=== PATIENT | male | born 1970 | race Caucasian/White ===

== ENCOUNTER 2017-05-18 14:55 | Inpatient (IN) | payer OTHER ==
[2017-05-18 16:41] VITALS: BMI 29.0
--- NOTE | 2017-05-18 18:48 | HP ---
COWS - Scale Resting Pulse: 0= [place] 80 or Below Sweatin=Flushed/Facial Moisture Restless Observation: 3= Extraneous Movement Pupil Size: 1= Pupils >than Normal Bone or Joint Aches: 2= Severe Diffuse Aches Runny Nose/ Eye Tearin= Runny Nose/Eyes GI Upset > 30mins: 2= Nausea/Diarrhea Tremor Observation: 1= Tremor [place], Not Seen Yawning Observation: 1= 1-2x During Session Anxiety or Irritability: 2=Irritable/Anxious Goose Flesh Skin: 0=Smooth Skin COWS Score: 16 Admission ROS S - HPI Chief Complaint: "I don't want this anymore, I have a and 3 children" Allergies/Adverse Reactions: Allergies Allergy/AdvReac Type Severity Reaction Status Date / Time cefaclor [From Ceclor] Allergy Severe Hives Verified 09/25/15 12:20 Penicillins Allergy Severe Swelling Verified 09/25/15 12:20 History of Present Illness: 46 y/o man with a 2 year history of heroin use, endorses occasional alcohol use but not addicted to it. Last use was this a.m. Pt had been at [facility] detox program in the past and attended rehab somewhere in [place]. Denies any significant medical hx but had surgical repair of the spine 2 years ago which he states was what started him on heroin. Exam Limitations: No Limitations - Ebola screening Have you traveled outside of the country in the last 21 days: No (N) Have you had contact with anyone from an Ebola affected area: No Have you been sick,other than usual withdrawal symptoms: No Do you have a fever: No - Review of Systems Constitutional: Chills, Diaphoresis, Night Sweats EENT: reports: Nose Congestion Respiratory: reports: No Symptoms reported Cardiac: reports: No Symptoms Reported GI: reports: Diarrhea, Nausea, Vomiting Musculoskeletal: reports: Back Pain (chronic back pain) Integumentary: reports: Flushing Neuro: reports: No Symptoms reported Endocrine: reports: No Symptoms Reported Hematology: reports: No Symptoms Reported, Anemia Psychiatric: reports: No Sypmtoms Reported Patient History - Patient Medical History Hx Anemia: No Hx Asthma: No Hx Chronic Obstructive Pulmonary Disease (COPD): No Hx Cancer: No Hx Cardiac Disorders: No Hx Congestive Heart Failure: No Hx Hypertension: No Hx Hypercholesterolemia: Yes (stayes he ran out his med a while agoand cannot rememeber the name of it, ) Hx Pacemaker: No HX Cerebrovascular Accident: No Hx Seizures: No Hx Dementia: No Hx Diabetes: No Hx Gastrointestinal Disorders: No Hx Liver Disease: No Hx Genitourinary Disorders: No Hx Sexually Transmitted Disorders: No Hx Renal Disease (ESRD): No Hx Thyroid Disease: No Hx Human Immunodeficiency Virus (HIV): No Hx Hepatitis C: No Hx Depression: Yes Hx Suicide Attempt: No Hx Bipolar Disorder: No Hx Schizophrenia: No - Patient Surgical History Past Surgical History: Yes Hx Orthopedic Surgery: Yes (back injury and had spinal fusion 04/2015) Anesthesia Reaction: No - PPD History Documented Results: Negative w/o proof Date: 09/27/15 PPD to be Administered?: Yes - Smoking Cessation Smoking history: Current every day smoker Have you smoked in the past 12 months: Yes Aproximately how many cigarettes per day: 20 Hx Chewing Tobacco Use: No Initiated information on smoking cessation: Yes 'Breaking Loose' booklet given: 05/18/17 - Substance & Tx. History Hx Substance Use: Yes Substance Use Type: Cocaine (occasional), Heroin (5 - 10 bags a day) - Substances Abused Cocaine Route: Inhalation Frequency: 1-3 times last 30 days Heroin Route: Inhalation Frequency: Daily Amount used: 5- 10 bags Age of first use: 44 Date of Last Use: 05/18/17 Marijuana/Hashish Route: Smoking (ocassionally) Frequency: 1-3 times last 30 days Oxycontin Route: Oral Frequency: 1-3 times last 30 days Amount used: "i dont know" Family Disease History - Family Disease History Family Disease History: Heart Disease: Grandparent ([place],L[place]GS), [place]: Grandparent, Other: Father (none, alive), Mother (none, alive), Brother (none, alive), Sister (none, alive), Son Admission Physical Exam S - Vital Signs Vital Signs: Vital Signs - 24 hr 05/18/17 16:39 Temperature 97.9 F Pulse Rate 64 Respiratory 18 Rate Blood Pressure 130/81 - Physical General Appearance: Yes: Moderate Distress, Anxious HEENTM: Yes: Nasal Congestion Respiratory: Yes: Chest Non-Tender, Lungs Clear, Normal Breath Sounds, No Accessory Muscle Use Neck: Yes: No masses,lesions,Nodules Breast: Yes: Breast Exam Deferred Cardiology: Yes: Regular Rhythm, Regular Rate, S1, S2 Abdominal: Yes: Normal Bowel Sounds, Non Tender Genitourinary: Yes: Within Normal Limits Back: Yes: Surgical Scar (s/p spinal fusion 2016) Integumentary: Yes: Within Normal Limits, Normal Color Lymphatic: Yes: Within Normal Limits - Diagnostic (1) Opioid dependence with withdrawal Current Visit: No Status: Acute (2) Cannabis dependence, uncomplicated Current Visit: No Status: Acute (3) Nicotine dependence Current Visit: No Status: Chronic Qualifiers: Nicotine product type: cigarettes Substance use status: uncomplicated Qualified Code(s): F17.210 - Nicotine dependence, cigarettes, uncomplicated Cleared for Admission [facility] - Detox or Rehab [facility] Level of Care: Medically Managed Detox Regimen/Protocol: Methadone [facility] Breath Alcohol Content Breath Alcohol Content: 0 Urine Drug Screen - Results Drug Screen Negative: No Urine Drug Screen Results: THC-Marijuana, CALOS-Cocaine, OPI-Opiates, OXY- Oxycodone
[2017-05-18] MEDS ORDERED: METHADONE HCL 10 MG TABLET (FOR DETOX USE ONLY) PO ONE (19:02)
[2017-05-18] MEDS ORDERED: guaiFENesin/D-METHORPHAN HB 10 ML UNIT-DOSE CUPS PO PRN (19:02)
[2017-05-18] MEDS ORDERED: NICOTINE POLACRILEX 2 MG GUM BC PRN (19:02)
[2017-05-18] MEDS ORDERED: MAG HYDROX/AL HYDROX/SIMETH 30 ML UNIT-DOSE CUP PO PRN (19:02)
[2017-05-18] MEDS ORDERED: MAGNESIUM HYDROX 2400MG/30ML ORAL SUSPENSION 30 ML CUP PO PRN (19:02)
[2017-05-18] MEDS ORDERED: IBUPROFEN 400 MG TABLET (FP) PO PRN (19:02)
[2017-05-18] MEDS ORDERED: LOPERAMIDE HCL 2 MG CAPSULE PO PRN (19:02)
[2017-05-18] MEDS ORDERED: MENTHOL/PHENOL 1 EACH UD MM PRN (19:02)
[2017-05-18] MEDS ORDERED: MAGNESIUM CITRATE 300 ML BOTTLE PO PRN (19:02)
[2017-05-18] MEDS ORDERED: ACETAMINOPHEN 325 MG TABLET (FP) PO PRN (19:02)
[2017-05-18] MEDS ORDERED: P-EPHED 60MG/TRIPROLIDI 2.5MG TABLET PO PRN (19:02)
[2017-05-18] MEDS: diazePAM 5 MG TABLET PO PRN (21:01)
[2017-05-18] MEDS: NICOTINE 21 MG/24 HOURS TOPICAL PATCH TD SCH (21:06)
[2017-05-19] MEDS: METHADONE HCL 10 MG TABLET (FOR DETOX USE ONLY) PO ONE ×2 (00:01→00:25)
[2017-05-19] MEDS: THIAMINE HCL 100 MG TABLET (FP) PO SCH ×3 (00:26→22:33)
[2017-05-19] MEDS: diazePAM 5 MG TABLET PO PRN ×3 (08:02→22:33)
--- NOTE | 2017-05-19 08:38 | EKG ---
Test Reason : Blood Pressure : / mmHG Vent. Rate : 066 BPM Atrial Rate : 066 BPM P-R Int : 148 ms QRS Dur : 084 ms QT Int : 418 ms P-R-T Axes : 070 069 041 degrees QTc Int : 438 ms NORMAL SINUS RHYTHM LOW VOLTAGE QRS BORDERLINE ECG WHEN COMPARED WITH ECG OF 11-MAR-2009 10:21, NO SIGNIFICANT CHANGE WAS FOUND Confirmed by PHILIPPE HERNÁNDEZ, MARCIE ([id number]) on 05/19/2017 8:38:35 AM Referred By: Juvenal Addison Confirmed By:MARCIE PAEZ MD
[2017-05-19] MEDS ORDERED: PRENATAL VITAMINS W/ FOLIC ACID TABLET (FP) PO SCH (10:00)
[2017-05-19] MEDS ORDERED: METHADONE HCL 10 MG TABLET (FOR DETOX USE ONLY) PO ONE (10:00)
[2017-05-19 10:09] LABS: HEMATOCRIT 41.4 % (35.4-49); HEMOGLOBIN 13.1 GM/dL (11.7-16.9); MCH 21.3 pg (25.7-33.7); MCHC 31.7 g/dl (32.0-35.9); MEAN CELL VOLUME 67.1 fl (80-96); MEAN PLT VOLUME 8.1 fl (7.5-11.1); PLATELET COUNT 244 K/MM3 (134-434); RBC 6.17 M/mm3 (4.00-5.60); RDW 15.9 % (11.9-15.9); WHITE BLOOD COUNT 7.4 K/mm3 (4.0-10.0)
--- NOTE | 2017-05-19 10:19 | CONSULT ---
[facility] Psychiatric Consult - Data Date of interview: 05/19/17 Admission source: Self-referred Identifying data: Mr Del Rio is a 46 years old male, father of 3 children, domiciled seeking detox treatment for opoid and cocaine Substance Abuse History: Reports history of heroin, percocet and cocaine use. Refer to addiction counselor's note for further information Medical History: Significant for hyperlipidemia and history of back injury ( spinal fusion in 2016). Ambulates with a cane. Smokes cigarettes 1ppd Psychiatric History: Denies history of previous psychiatric treatment Physical/Sexual Abuse/Trauma History: Denies history of emotional, physical or sexual abuse as well as DV relationship Additional Comment: Denies criminal history Mental Status Exam - Mental Status Exam Alert and Oriented to: Time, Place, Person Cognitive Function: Fair Patient Appearance: Well Groomed Mood: Depressed, Anxious Patient Behavior: Cooperative Speech Pattern: Clear Voice Loudness: Normal Thought Process: Intact, Goal Oriented Hallucinations: Denies Suicidal Ideation: Denies Homicidal Ideation: Denies Insight/Judgement: Poor Sleep: Poorly Appetite: Fair Muscle strength/Tone: Normal Gait/Station: Normal Psychiatric Findings - Problem List ([place] 1, 2,3) (1) Substance induced mood disorder Current Visit: Yes Status: Acute (2) Substance-induced sleep disorder Current Visit: No Status: Acute (3) Opioid dependence with withdrawal Current Visit: No Status: Acute (4) Cannabis dependence, uncomplicated Current Visit: No Status: Acute (5) Nicotine dependence Current Visit: No Status: Chronic Qualifiers: Nicotine product type: cigarettes Substance use status: uncomplicated Qualified Code(s): F17.210 - Nicotine dependence, cigarettes, uncomplicated (6) Hyperlipemia Current Visit: Yes Status: Chronic - Initial Treatment Plan Initial Treatment Plan: 1) Start Trazadone 100 mg po HS. 2) Continue inpatient detoxification
[2017-05-19 10:21] LABS: URINE APPEARANCE TURBID; URINE BILIRUBIN NEGATIVE (NEGATIVE); URINE BLOOD NEGATIVE (NEGATIVE); URINE GLUCOSE (UA) NEGATIVE (NEGATIVE); URINE KETONE NEGATIVE (NEGATIVE); URINE LEUK ESTERASE NEGATIVE (NEGATIVE); URINE NITRITE NEGATIVE (NEGATIVE); URINE PROTEIN NEGATIVE (NEGATIVE); URINE UROBILINOGEN NEGATIVE mg/dL (0.2-1.0)
[2017-05-19 10:24] LABS: URINE COLOR DK YELLOW
[2017-05-19 10:28] LABS: CHLORIDE 104 mmol/L (98-107); POTASSIUM 4.3 mmol/L (3.5-5.1); SODIUM 139 mmol/L (136-145)
[2017-05-19 10:39] LABS: ALBUMIN 3.9 g/dl (3.4-5.0); ALK PHOS 69 U/L (45-117); ANION GAP 5 (8-16); BILIRUBIN,TOTAL 0.9 mg/dL (0.2-1.0); BLOOD UREA NITROGEN 12 mg/dL (7-18); CALCIUM 8.8 mg/dL (8.5-10.1); CO2 30 mmol/L (21-32); GLUCOSE,RANDOM 113 mg/dL (74-106); SGOT/AST 15 U/L (15-37); SGPT/ALT 23 U/L (12-78)
[2017-05-19] MEDS: NICOTINE 21 MG/24 HOURS TOPICAL PATCH TD SCH (11:03)
--- NOTE | 2017-05-19 11:34 | PN ---
[facility] COWS - Scale Resting Pulse: 0= [place] 80 or Below Sweatin= Chills/Flushing Restless Observation: 1= Difficult to Sit Still Pupil Size: 0= Normal to Room Light Bone or Joint Aches: 2= Severe Diffuse Aches Runny Nose/ Eye Tearin= Runny Nose/Eyes GI Upset > 30mins: 2= Nausea/Diarrhea Tremor Observation of Outstretched Hands: 2= Slight Tremor Visible Yawning Observation: 2= >3x During Session Anxiety or Irritability: 2=Irritable/Anxious Goose Flesh Skin: 0=Smooth Skin COWS Score: 14 S Progress Note (SOAP) Subjective: joint aches back pain tremor sweat anxiety depression Objective: 05/19/17 11:33 Vital Signs Temperature 98.1 F 05/19/17 10:03 Pulse Rate 65 05/19/17 10:03 Respiratory Rate 18 05/19/17 10:03 Blood Pressure 133/82 05/19/17 10:03 O2 Sat by Pulse Oximetry (%) Laboratory Last Values WBC 7.4 K/mm3 (4.0-10.0) 05/19/17 08:15 RBC 6.17 M/mm3 (4.00-5.60) H 05/19/17 08:15 Hgb 13.1 GM/dL (11.7-16.9) D 05/19/17 08:15 Hct 41.4 % (35.4-49) 05/19/17 08:15 MCV 67.1 fl (80-96) L 05/19/17 08:15 MCH 21.3 pg (25.7-33.7) L 05/19/17 08:15 MCHC 31.7 g/dl (32.0-35.9) L 05/19/17 08:15 RDW 15.9 % (11.9-15.9) 05/19/17 08:15 Plt Count 244 K/MM3 (134-434) 05/19/17 08:15 MPV 8.1 fl (7.5-11.1) 05/19/17 08:15 Sodium 139 mmol/L (136-145) 05/19/17 08:00 Potassium 4.3 mmol/L (3.5-5.1) 05/19/17 08:00 Chloride 104 mmol/L (98-107) 05/19/17 08:00 Carbon Dioxide 30 mmol/L (21-32) 05/19/17 08:00 Anion Gap 5 (8-16) L 05/19/17 08:00 BUN 12 mg/dL (7-18) 05/19/17 08:00 Creatinine 1.0 mg/dL (0.7-1.3) 05/19/17 08:00 Creat Clearance w eGFR > 60 (>60) 05/19/17 08:00 Random Glucose 113 mg/dL (74-106) H 05/19/17 08:00 Calcium 8.8 mg/dL (8.5-10.1) 05/19/17 08:00 Total Bilirubin 0.9 mg/dL (0.2-1.0) D 05/19/17 08:00 AST 15 U/L (15-37) D 05/19/17 08:00 ALT 23 U/L (12-78) 05/19/17 08:00 Alkaline Phosphatase 69 U/L (45-117) 05/19/17 08:00 Total Protein 7.0 g/dl (6.4-8.2) 05/19/17 08:00 Albumin 3.9 g/dl (3.4-5.0) 05/19/17 08:00 Urine Color Dk yellow 05/18/17 09:57 Urine Appearance Turbid 05/18/17 09:57 Urine pH 5.0 (5.0-8.0) 05/18/17 09:57 Ur Specific [place] 1.025 (1.001-1.035) 05/18/17 09:57 Urine Protein Negative (NEGATIVE) 05/18/17 09:57 Urine Glucose (UA) Negative (NEGATIVE) 05/18/17 09:57 Urine Ketones Negative (NEGATIVE) 05/18/17 09:57 Urine Blood Negative (NEGATIVE) 05/18/17 09:57 Urine Nitrite Negative (NEGATIVE) 05/18/17 09:57 Urine Bilirubin Negative (NEGATIVE) 05/18/17 09:57 Urine Urobilinogen Negative mg/dL (0.2-1.0) 02 09:57 Ur Leukocyte Esterase Negative (NEGATIVE) 05/18/17 09:57 lab noted Assessment: 05/19/17 11:34 withdrawal sx Plan: continue detox
[2017-05-19] MEDS: hydrOXYzine PAMOATE 50 MG CAPSULE (FP) PO PRN (13:49)
[2017-05-19] MEDS: traZODone HCL 100 MG TABLET (FP) PO SCH (22:33)
[2017-05-20] MEDS: diazePAM 5 MG TABLET PO PRN ×3 (02:30→22:01)
[2017-05-20] MEDS ORDERED: METHADONE HCL 5 MG TABLET (FOR DETOX USE ONLY) PO ONE (10:00)
[2017-05-20] MEDS: cloNIDine HCL 0.1 MG TABLET PO SCH ×2 (10:45→22:01)
[2017-05-20] MEDS: CYCLOBENZAPRINE HCL 10 MG TABLET (FP) PO PRN ×2 (10:45→22:01)
[2017-05-20] MEDS: NICOTINE 21 MG/24 HOURS TOPICAL PATCH TD SCH (10:47)
--- NOTE | 2017-05-20 11:26 | PN ---
[facility] COWS - Scale Resting Pulse: 0= [place] 80 or Below Sweatin= Chills/Flushing Restless Observation: 3= Extraneous Movement Pupil Size: 1= Pupils >than Normal Bone or Joint Aches: 2= Severe Diffuse Aches Runny Nose/ Eye Tearin= Runny Nose/Eyes GI Upset > 30mins: 2= Nausea/Diarrhea Tremor Observation of Outstretched Hands: 2= Slight Tremor Visible Yawning Observation: 1= 1-2x During Session Anxiety or Irritability: 2=Irritable/Anxious Goose Flesh Skin: 0=Smooth Skin COWS Score: 16 S Progress Note (SOAP) Subjective: ALERT,IRRITABLE,ANXIOUS,INTERRUPTED SLEEP,PAIN IN THE BODY AND BACK Objective: 05/20/17 11:24 Vital Signs Temperature 98.1 F 05/20/17 10:39 Pulse Rate 78 05/20/17 10:39 Respiratory Rate 20 05/20/17 10:39 Blood Pressure 143/96 05/20/17 10:39 O2 Sat by Pulse Oximetry (%) Laboratory Last Values WBC 7.4 K/mm3 (4.0-10.0) 05/19/17 08:15 RBC 6.17 M/mm3 (4.00-5.60) H 05/19/17 08:15 Hgb 13.1 GM/dL (11.7-16.9) D 05/19/17 08:15 Hct 41.4 % (35.4-49) 05/19/17 08:15 MCV 67.1 fl (80-96) L 05/19/17 08:15 MCH 21.3 pg (25.7-33.7) L 05/19/17 08:15 MCHC 31.7 g/dl (32.0-35.9) L 05/19/17 08:15 RDW 15.9 % (11.9-15.9) 05/19/17 08:15 Plt Count 244 K/MM3 (134-434) 05/19/17 08:15 MPV 8.1 fl (7.5-11.1) 05/19/17 08:15 Sodium 139 mmol/L (136-145) 05/19/17 08:00 Potassium 4.3 mmol/L (3.5-5.1) 05/19/17 08:00 Chloride 104 mmol/L (98-107) 05/19/17 08:00 Carbon Dioxide 30 mmol/L (21-32) 05/19/17 08:00 Anion Gap 5 (8-16) L 05/19/17 08:00 BUN 12 mg/dL (7-18) 05/19/17 08:00 Creatinine 1.0 mg/dL (0.7-1.3) 05/19/17 08:00 Creat Clearance w eGFR > 60 (>60) 05/19/17 08:00 Random Glucose 113 mg/dL (74-106) H 05/19/17 08:00 Calcium 8.8 mg/dL (8.5-10.1) 05/19/17 08:00 Total Bilirubin 0.9 mg/dL (0.2-1.0) D 05/19/17 08:00 AST 15 U/L (15-37) D 05/19/17 08:00 ALT 23 U/L (12-78) 05/19/17 08:00 Alkaline Phosphatase 69 U/L (45-117) 05/19/17 08:00 Total Protein 7.0 g/dl (6.4-8.2) 05/19/17 08:00 Albumin 3.9 g/dl (3.4-5.0) 05/19/17 08:00 Urine Color Dk yellow 05/18/17 09:57 Urine Appearance Turbid 05/18/17 09:57 Urine pH 5.0 (5.0-8.0) 05/18/17 09:57 Ur Specific [place] 1.025 (1.001-1.035) 05/18/17 09:57 Urine Protein Negative (NEGATIVE) 05/18/17 09:57 Urine Glucose (UA) Negative (NEGATIVE) 05/18/17 09:57 Urine Ketones Negative (NEGATIVE) 05/18/17 09:57 Urine Blood Negative (NEGATIVE) 05/18/17 09:57 Urine Nitrite Negative (NEGATIVE) 05/18/17 09:57 Urine Bilirubin Negative (NEGATIVE) 05/18/17 09:57 Urine Urobilinogen Negative mg/dL (0.2-1.0) 05/18/17 09:57 Ur Leukocyte Esterase Negative (NEGATIVE) 05/18/17 09:57 RPR Titer Nonreactive (NONREACTIVE) 05/19/17 08:00 Assessment: 05/20/17 11:25 WITHDRAWAL SYMPTOM Plan: CONTINUE DETOX
[2017-05-20] MEDS: MULTIVITAMINS (DAILY MVI) TABLET (FP) PO SCH (14:03)
[2017-05-20] MEDS: THIAMINE HCL 100 MG TABLET (FP) PO SCH (22:00)
[2017-05-20] MEDS: traZODone HCL 100 MG TABLET (FP) PO SCH (22:01)
[2017-05-21] MEDS: diazePAM 5 MG TABLET PO PRN ×3 (03:59→14:57)
[2017-05-21] MEDS ORDERED: METHADONE HCL 5 MG TABLET (FOR DETOX USE ONLY) PO ONE (10:00)
--- NOTE | 2017-05-21 10:18 | PN ---
S Progress Note (SOAP) Subjective: ALERT,IRRITABLE,ANXIOUS,INTERRUPTED SLEEP,TREMOR,PAIN IN THE BODY AND BACK Objective: 05/21/17 10:16 Vital Signs Temperature 97.9 F 05/20/17 22:34 Pulse Rate 83 05/20/17 22:34 Respiratory Rate 18 05/21/17 06:18 Blood Pressure 110/67 05/20/17 22:34 O2 Sat by Pulse Oximetry (%) Assessment: 05/21/17 10:16 WITHDRAWAL SYMPTOM Plan: CONTINUE DETOX,HISTORY OF BACK SURGERY,AMBULATION WITH CANE AT HOME,WILL OBTAIN CANE FOR AMBULATIORY AID
[2017-05-21] MEDS: cloNIDine HCL 0.1 MG TABLET PO SCH ×2 (10:50→22:24)
[2017-05-21] MEDS: CYCLOBENZAPRINE HCL 10 MG TABLET (FP) PO PRN ×2 (10:52→22:24)
[2017-05-21] MEDS: NICOTINE 21 MG/24 HOURS TOPICAL PATCH TD SCH (11:09)
[2017-05-21] MEDS: MULTIVITAMINS (DAILY MVI) TABLET (FP) PO SCH (11:33)
[2017-05-21] MEDS: hydrOXYzine PAMOATE 50 MG CAPSULE (FP) PO PRN (14:10)
[2017-05-21] MEDS: traZODone HCL 100 MG TABLET (FP) PO SCH (22:24)
[2017-05-21] MEDS: THIAMINE HCL 100 MG TABLET (FP) PO SCH (22:24)
[2017-05-22] MEDS ORDERED: CYCLOBENZAPRINE HCL 10 MG TABLET (FP) PO ONE (09:57)
[2017-05-22] MEDS ORDERED: METHADONE HCL 10 MG TABLET (FOR DETOX USE ONLY) PO ONE (10:00)
[2017-05-22] MEDS ORDERED: LIDOCAINE 5% TOPICAL PATCH TP SCH (10:45)
[2017-05-22] MEDS: MULTIVITAMINS (DAILY MVI) TABLET (FP) PO SCH (10:47)
[2017-05-22] MEDS: NICOTINE 21 MG/24 HOURS TOPICAL PATCH TD SCH (10:48)
[2017-05-22] MEDS: cloNIDine HCL 0.1 MG TABLET PO SCH (10:50)
[2017-05-22] MEDS: CYCLOBENZAPRINE HCL 10 MG TABLET (FP) PO PRN (10:50)
[2017-05-22] MEDS: hydrOXYzine PAMOATE 50 MG CAPSULE (FP) PO PRN (11:09)
--- NOTE | 2017-05-22 11:18 | PN ---
[facility] Progress Note (SOAP) Subjective: alert,irritable,anxious,interrupted sleep,pain in the back Objective: 05/22/17 11:16 Vital Signs Temperature 97.3 F L 05/22/17 10:23 Pulse Rate 75 05/22/17 10:23 Respiratory Rate 16 05/22/17 10:23 Blood Pressure 104/69 05/22/17 10:23 O2 Sat by Pulse Oximetry (%) withdrawal symptom Assessment: 05/22/17 11:17 withdrawal symptom Plan: continue detox,lidoderm patch,flexeril 10 mgs po tid prn,possible discharge in am
[2017-05-22] MEDS ORDERED: cloNIDine HCL 0.1 MG TABLET PO SCH (14:00)
[2017-05-22] MEDS ORDERED: hydrOXYzine PAMOATE 50 MG CAPSULE (FP) PO ONE (14:40)
[2017-05-22] MEDS ORDERED: PANTOPRAZOLE 40 MG TABLET (FP) PO SCH (14:40)
[2017-05-22] MEDS: GABAPENTIN 100 MG CAPSULE (FP) PO SCH ×2 (14:49→22:05)
[2017-05-22] MEDS: NAPROXEN 500 MG TABLET (FP) PO SCH ×2 (14:49→22:05)
[2017-05-22] MEDS: TIZANIDINE HCL 4 MG TABLET PO PRN ×2 (15:03→22:05)
[2017-05-22] MEDS ORDERED: LIDOCAINE PATCH REMOVAL MC SCH (22:00)
[2017-05-22] MEDS ORDERED: ZOLPIDEM TARTRATE 10 MG TABLET (PARK CARE ONLY) PO PRN (22:00)
[2017-05-22] MEDS: traZODone HCL 100 MG TABLET (FP) PO SCH (22:05)
[2017-05-22] MEDS: THIAMINE HCL 100 MG TABLET (FP) PO SCH (22:05)
[2017-05-23] MEDS: GABAPENTIN 100 MG CAPSULE (FP) PO SCH (05:18)
[2017-05-23] MEDS ORDERED: METHADONE HCL 5 MG TABLET (FOR DETOX USE ONLY) PO ONE (06:00)
--- NOTE | 2017-05-23 08:20 | DS ---
[facility] Detox Discharge Summary Admission Date: 05/18/17 Discharge Date: 05/23/17 - History Present History: Cannabis Dependence, Opioid Dependence Additional Comments: FOLLOW UP WITH AFTER CARE PROGRAM ARRANGEMENT Pertinent Past History: NICOTINE DEPENDENCE HYPERLIPIDEMIA HISTORY OF BACK SURGERY - Physical Exam Results Vital Signs: Vital Signs Temperature 97.3 F L 05/23/17 06:00 Pulse Rate 84 05/23/17 06:00 Respiratory Rate 18 05/23/17 06:00 Blood Pressure 122/67 05/23/17 06:00 O2 Sat by Pulse Oximetry (%) Pertinent Admission Physical Exam Findings: WITHDRAWAL SIGNS AND SYMPTOM - Treatment Hospital Course: Detox Protocol Followed, Detoxed Safely, Responded well, Discharged Condition Good Patient has Accepted a Rehab Referral to: DECLINED - Medication Discharge Medications: Ambulatory Orders Tizanidine HCl 4 mg PO Q8H PRN #30 tablet 05/22/17 - Diagnosis (1) Opioid dependence with withdrawal Current Visit: No Status: Acute (2) Substance induced mood disorder Current Visit: Yes Status: Acute (3) Hyperlipemia Current Visit: Yes Status: Chronic (4) Cannabis dependence, uncomplicated Current Visit: No Status: Acute (5) Substance-induced anxiety disorder Current Visit: No Status: Acute (6) Substance-induced sleep disorder Current Visit: No Status: Acute (7) Nicotine dependence Current Visit: No Status: Chronic Qualifiers: Nicotine product type: cigarettes Substance use status: uncomplicated Qualified Code(s): F17.210 - Nicotine dependence, cigarettes, uncomplicated (8) History of back surgery Current Visit: Yes Status: Acute - AMA Did Patient Leave Against Medical Advice: No
--- NOTE | 2017-05-23 08:22 | PN ---
S Progress Note Note: PATIENT IS STABLE FOR DISCHARGE,FOLLOW UP WITH [facility]
[2017-05-23 11:29] VITALS: BP 119/68; PULSE 77; TEMP 98.2
== END 2017-05-23 09:00 | disposition home or self-care (01) | DRG 773 ==
LOC: YASAS 14:55 → Y6N 17:23
PROVIDERS: ADMIT Internal Medicine; ATTEND Internal Medicine
PROC: HZ2ZZZZ Detoxification Services for Substance Abuse Treatment (ICD-10-PCS; principal; 2017-05-18)
DX: F11.23 Opioid dependence with withdrawal (principal); F12.20 Cannabis dependence, uncomplicated; F17.210 Nicotine dependence, cigarettes, uncomplicated; F19.280 Other psychoactive substance dependence with psychoactive substance-induced anxiety disorder; F19.24 Other psychoactive substance dependence with psychoactive substance-induced mood disorder; F19.282 Other psychoactive substance dependence with psychoactive substance-induced sleep disorder; E78.5 Hyperlipidemia, unspecified; Z98.890 Other specified postprocedural states
CPT/HCPCS: 36415; 80053; 81003; 85027; 86593; 93005; 93010; J0735

== ENCOUNTER 2020-10-06 13:08 | Inpatient (IN) | payer OTHER ==
[2020-10-06 14:31] VITALS: BMI 31.4
[2020-10-06] MEDS ORDERED: IBUPROFEN 400 MG TABLET (FP) PO PRN (15:36)
[2020-10-06] MEDS ORDERED: MAGNESIUM CITRATE 300 ML BOTTLE PO PRN (15:36)
[2020-10-06] MEDS ORDERED: LORazepam 1 MG TABLET PO PRN (15:36)
[2020-10-06] MEDS ORDERED: BISMUTH SUBSALICYLATE 262 MG/15 ML BTL PO PRN (15:36)
[2020-10-06] MEDS ORDERED: ACETAMINOPHEN 325 MG TABLET (FP) PO PRN ×2 (15:36)
[2020-10-06] MEDS ORDERED: MAG HYDROX/AL HYDROX/SIMETH 30 ML UNIT-DOSE CUP PO PRN (15:36)
[2020-10-06] MEDS ORDERED: MENTHOL/PHENOL 1 EACH UD MM PRN (15:36)
[2020-10-06] MEDS ORDERED: MAGNESIUM HYDROX 2400MG/30ML ORAL SUSPENSION 30 ML CUP PO PRN (15:36)
[2020-10-06] MEDS ORDERED: ONDANSETRON *ODT* 4 MG TABLET SL PRN (15:36)
[2020-10-06] MEDS ORDERED: METHADONE HCL 10 MG TABLET (FOR DETOX USE ONLY) PO ONE (15:51)
[2020-10-06] MEDS ORDERED: LORazepam 2 MG TABLET PO SCH (17:00)
[2020-10-06] MEDS: hydrOXYzine PAMOATE 25 MG CAPSULE (FP) PO SCH ×2 (17:19→22:38)
[2020-10-06] MEDS: MELATONIN 5 MG TABLETS PO SCH (22:38)
[2020-10-06] MEDS: THIAMINE HCL 100 MG TABLET (FP) PO SCH (22:38)
[2020-10-07] MEDS: cloNIDine HCL 0.1 MG TABLET PO PRN ×2 (03:45→08:31)
[2020-10-07] MEDS: METHOCARBAMOL 500 MG TABLET PO PRN ×3 (03:45→23:07)
[2020-10-07] MEDS: hydrOXYzine PAMOATE 25 MG CAPSULE (FP) PO SCH ×7 (06:10→23:08)
[2020-10-07] MEDS ORDERED: METHADONE HCL 10 MG TABLET (FOR DETOX USE ONLY) ONE (09:54)
[2020-10-07] MEDS ORDERED: METHADONE HCL 5 MG TABLET (FOR DETOX USE ONLY) ONE (09:55)
[2020-10-07 09:58] LABS: HEMATOCRIT 35.7 % (35.4-49); HEMOGLOBIN 11.8 GM/dL (11.7-16.9); MCHC 32.9 g/dl (32.0-35.9); MEAN CELL VOLUME 66.8 fl (80-96); MEAN PLT VOLUME 7.9 fl (7.5-11.1); PLATELET COUNT 310 10^3/uL (134-434); RBC 5.35 M/mm3 (4.00-5.60); RDW 16.2 % (11.9-15.9); WHITE BLOOD COUNT 6.1 K/mm3 (4.0-10.0)
[2020-10-07] MEDS ORDERED: METHADONE (DETOX) 20 MG, METHADONE (DETOX) 5 MG PO ONE (10:00)
[2020-10-07 10:03] LABS: ALBUMIN 3.8 g/dl (3.4-5.0); BLOOD UREA NITROGEN 11.5 mg/dL (7-18)
[2020-10-07 10:06] LABS: CREATININE 0.9 mg/dL (0.55-1.3)
[2020-10-07 10:08] LABS: BILIRUBIN,TOTAL 0.7 mg/dL (0.2-1); TOT PROT 6.9 g/dl (6.4-8.2)
[2020-10-07] MEDS: PRENATAL VITAMINS W/ FOLIC ACID TABLET (FP) PO SCH (10:18)
[2020-10-07] MEDS: diazePAM 5 MG TABLET PO PRN ×2 (13:17→23:05)
[2020-10-07] MEDS: NICOTINE POLACRILEX 2 MG GUM BUC PRN (15:35)
[2020-10-07] MEDS: NICOTINE 14 MG/24 HOURS TOPICAL PATCH TD SCH (17:55)
[2020-10-07] MEDS: MELATONIN 5 MG TABLETS PO SCH ×2 (22:34→23:08)
[2020-10-07] MEDS: THIAMINE HCL 100 MG TABLET (FP) PO SCH ×2 (22:34→23:08)
[2020-10-08] MEDS ORDERED: LORazepam 1 MG TABLET PO SCH (05:00)
[2020-10-08] MEDS: hydrOXYzine PAMOATE 25 MG CAPSULE (FP) PO SCH ×5 (07:13→22:09)
[2020-10-08] MEDS ORDERED: METHADONE HCL 10 MG TABLET (FOR DETOX USE ONLY) PO ONE (10:00)
[2020-10-08] MEDS: PRENATAL VITAMINS W/ FOLIC ACID TABLET (FP) PO SCH (10:31)
[2020-10-08] MEDS: diazePAM 5 MG TABLET PO PRN ×2 (10:31→17:47)
[2020-10-08] MEDS: NICOTINE 14 MG/24 HOURS TOPICAL PATCH TD SCH (10:31)
[2020-10-08] MEDS: METHOCARBAMOL 500 MG TABLET PO PRN (13:09)
[2020-10-08] MEDS: MELATONIN 5 MG TABLETS PO SCH (22:09)
[2020-10-08] MEDS: THIAMINE HCL 100 MG TABLET (FP) PO SCH (22:09)
[2020-10-09] MEDS ORDERED: LORazepam 0.5 MG TABLET PO PRN
[2020-10-09] MEDS ORDERED: LORazepam 0.5 MG TABLET PO SCH (05:00)
[2020-10-09] MEDS: hydrOXYzine PAMOATE 25 MG CAPSULE (FP) PO SCH ×5 (08:05→22:11)
[2020-10-09] MEDS ORDERED: METHADONE HCL 5 MG TABLET (FOR DETOX USE ONLY) ONE (09:27)
[2020-10-09] MEDS ORDERED: METHADONE HCL 10 MG TABLET (FOR DETOX USE ONLY) ONE (09:27)
[2020-10-09] MEDS ORDERED: METHADONE (DETOX) 10 MG, METHADONE (DETOX) 5 MG PO ONE (10:00)
[2020-10-09] MEDS: PRENATAL VITAMINS W/ FOLIC ACID TABLET (FP) PO SCH (10:18)
[2020-10-09] MEDS: METHOCARBAMOL 500 MG TABLET PO PRN ×2 (10:18→16:22)
[2020-10-09] MEDS: diazePAM 5 MG TABLET PO PRN ×3 (10:18→22:11)
[2020-10-09] MEDS: NICOTINE 14 MG/24 HOURS TOPICAL PATCH TD SCH (10:19)
[2020-10-09] MEDS: NICOTINE POLACRILEX 2 MG GUM BUC PRN (10:21)
[2020-10-09] MEDS ORDERED: BENZOCAINE 28 GM HEMORRHOIDAL OINTMENT PR ONE (15:43)
[2020-10-09] MEDS: MELATONIN 5 MG TABLETS PO SCH (22:11)
[2020-10-09] MEDS: THIAMINE HCL 100 MG TABLET (FP) PO SCH (22:11)
[2020-10-09] MEDS: BENZOCAINE 28 GM HEMORRHOIDAL OINTMENT PR SCH (22:14)
[2020-10-10] MEDS: hydrOXYzine PAMOATE 25 MG CAPSULE (FP) PO SCH ×6 (00:18→22:12)
[2020-10-10] MEDS ORDERED: LORazepam 0.5 MG TABLET PO ONE (05:00)
[2020-10-10] MEDS: diazePAM 5 MG TABLET PO PRN (06:27)
[2020-10-10] MEDS ORDERED: METHADONE HCL 10 MG TABLET (FOR DETOX USE ONLY) PO ONE (10:00)
[2020-10-10] MEDS: METHOCARBAMOL 500 MG TABLET PO PRN ×2 (10:23→22:13)
[2020-10-10] MEDS: PRENATAL VITAMINS W/ FOLIC ACID TABLET (FP) PO SCH (10:23)
[2020-10-10] MEDS: NICOTINE 14 MG/24 HOURS TOPICAL PATCH TD SCH (10:25)
[2020-10-10] MEDS: NICOTINE POLACRILEX 2 MG GUM BUC PRN ×2 (10:25→13:48)
[2020-10-10] MEDS ORDERED: COVID-19 VAC,AD26(JANSSEN)/PF 0.5 ML IM ONE (11:00)
[2020-10-10] MEDS: BENZOCAINE 28 GM HEMORRHOIDAL OINTMENT PR SCH (22:12)
[2020-10-10] MEDS: MELATONIN 5 MG TABLETS PO SCH (22:12)
[2020-10-10] MEDS: THIAMINE HCL 100 MG TABLET (FP) PO SCH (22:12)
[2020-10-11] MEDS: hydrOXYzine PAMOATE 25 MG CAPSULE (FP) PO SCH (05:44)
[2020-10-11] MEDS ORDERED: METHADONE HCL 5 MG TABLET (FOR DETOX USE ONLY) PO ONE (06:00)
[2020-10-11 06:45] VITALS: BP 122/78; PULSE 74; TEMP 98.1
== END 2020-10-11 08:58 | disposition home or self-care (01) | DRG 897 ==
LOC: YASAS 13:08 → Y3N 15:25
PROVIDERS: ADMIT Allergy & Immunology; ATTEND Allergy & Immunology
PROC: HZ2ZZZZ Detoxification Services for Substance Abuse Treatment (ICD-10-PCS; principal; 2020-10-06)
DX: F11.23 Opioid dependence with withdrawal (principal); F19.280 Other psychoactive substance dependence with psychoactive substance-induced anxiety disorder; F19.282 Other psychoactive substance dependence with psychoactive substance-induced sleep disorder; F12.20 Cannabis dependence, uncomplicated; F17.210 Nicotine dependence, cigarettes, uncomplicated; F19.24 Other psychoactive substance dependence with psychoactive substance-induced mood disorder; E78.5 Hyperlipidemia, unspecified; Z85.51 Personal history of malignant neoplasm of bladder; M54.5 Low back pain; G89.29 Other chronic pain; E66.9 Obesity, unspecified; Z68.31 Body mass index [BMI] 31.0-31.9, adult; Z88.0 Allergy status to penicillin; Z88.8 Allergy status to other drugs, medicaments and biological substances
CPT/HCPCS: 0031A; 36415; 80053; 85027; 86780; 91303; C9803; J0735; U0003; U0005